=== PATIENT | female | born 1975 | race Caucasian/White ===

== ENCOUNTER 2019-05-15 16:54 | Inpatient (IN) | payer OTHER ==
[~2019-05-15] VITALS: Ht 149.9 cm; Wt 99.8 kg
--- NOTE | 2019-05-15 17:21 | NUR ---
PT ARRIVED VIA AMBULANCE FROM [facility] DUE TO CP OFF/ON X 2 DAYS. CP STARTED AGAIN 01/24 AT 1500 AND WAS GIVEN NITRO X 2 WITH RELIEF. PT STATES SHE HAS HAD INCREASE STRESS IN HER FAMILY LIFE AND WHEN SHE THINKS ABOUT THAT SHE HAS CP AND ANXIETY. SHE IS A/O X4 WITH RESP EVEN/UNLABORED. DENIES PAIN AT THIS TIME. WILL CONT TO MONITOR.
[2019-05-15 17:41] LABS: BASOPHIL % 0.5 % (0-2); PLATELET COUNT 386 x10^3mcL (130-400); RED CELL DISTRIBUTION WIDTH 13.9 % (11.5-14.5)
[2019-05-15 17:53] LABS: CALCIUM 9.7 mg/dL (8.5-10.1); CARBON DIOXIDE 33.6 mmol/L (21-32); CHLORIDE SERUM 99 mmol/L (98-107); CREATININE SERUM 0.8 mg/dL (0.6-1.0); GFR1 > 60 mL/min; GLUCOSE SERUM 102 mg/dL (74-106); POTASSIUM SERUM 3.9 mmol/L (3.5-5.1); SODIUM SERUM 140 mmol/L (136-145)
[2019-05-15 18:00] LABS: ALBUMIN 3.8 g/dL (3.4-5.0); ALKALINE PHOSPHATASE 67 U/L (46-116); ALT/SGPT 35 U/L (14-59); AST/SGOT 16 U/L (15-37); BILIRUBIN TOTAL 0.32 mg/dL (0.20-1.00)
--- NOTE | 2019-05-15 19:18 | NUR ---
REPORT GIVEN TO GYPSY WALDROP, TO ASSUME CARE OF PT .
[2019-05-15] MEDS ORDERED: HYDROCHLOROTHIA25 MG PO (19:22)
[2019-05-15] MEDS ORDERED: APAP500 MG PO (19:22)
[2019-05-15] MEDS ORDERED: POLYCAL PO (19:23)
[2019-05-15] MEDS ORDERED: PROPRANOLOL HCL20 MG PO (19:23)
--- NOTE | 2019-05-15 19:27 | NUR ---
PT CURRENTLY RESTING IN A POSITION OF COMFORT, AOX4, RESP EVEN AND UNLABORED, NO ACUTE DISTRESS NOTED.
--- NOTE | 2019-05-15 19:47 | NUR ---
PT TRANSFERRED TO [facility] BY [facility] BY LYNETTE BETANCUR AND SABA EMT. PT ON FULL CM FOR TRANSPORT, PT AOX4, RESP EVEN AND UNLABORED, NO ACUTE DISTRESS NOTED. PT AMBULATED FROM [facility] TO BED WITHOUT INCIDENT. PT ACCEPTED BY SHELLY BETANCUR TO ASSUME PT CARE. CIW GUARDS AT SIDE.
--- NOTE | 2019-05-15 19:50 | NUR ---
[facility] [employer], CAME IN DUE TO CHEST PAIN X2 DAYS. AAOX4. DENIES HEADACHE/DIZZINESS. ABLE TO FOLLOW COMMANDS. NO SOB NOTED, LUNG SOUNDS CTA. DENIES CHEST PAIN/PRESSURE, SR ON THE MONITOR. DENIES ABDOMINAL DISCOMFORT. BOWEL SOUNDS ACTIVE. VOIDS. IV SITE ON THE LEFT HAND PATENT AND INTACT. CALM AND COOPERATIVE TO CARE. ENDORSED TO PRIMARY NURSE SHELLY FOR CONTINUITY OF CARE
[2019-05-15 20:15] VITALS: BP 158/84
[2019-05-15 20:18] VITALS: Ht 149.9 cm; Wt 99.8 kg
[2019-05-15 20:54] LABS: MAGNESIUM 1.8 mg/dL (1.8-2.4)
[2019-05-15 21:12] LABS: CHOLESTEROL/HDL RATIO 3.3
[2019-05-16 05:20] LABS: UA SPECIFIC GRAVITY 1.015 (1.005-1.035); microscopic required? YES; urine erythrocyte TRACE (NEGATIVE)
[2019-05-16 05:25] LABS: AMPHETAMINE QUAL UR NONE DETECTED (See below)
[2019-05-16 05:49] VITALS: BP 140/79
[2019-05-16 06:09] LABS: BASOPHIL % 0.5 % (0-2); PLATELET COUNT 359 x10^3mcL (130-400); RED CELL DISTRIBUTION WIDTH 13.7 % (11.5-14.5)
[2019-05-16 06:20] LABS: CALCIUM 9.3 mg/dL (8.5-10.1); CHLORIDE SERUM 103 mmol/L (98-107); CREATININE SERUM 0.9 mg/dL (0.6-1.0); GFR1 > 60 mL/min; GLUCOSE SERUM 100 mg/dL (74-106); POTASSIUM SERUM 3.9 mmol/L (3.5-5.1); SODIUM SERUM 145 mmol/L (136-145)
--- NOTE | 2019-05-16 06:59 | NUR ---
PT RESTED IN LONG INTERVALS THROUGHOUT SHIFT. NO SOB NOTED ON ROOM AIR. NO C/O CHEST PAIN. NO DISTRESS NOTED. SAFETY MEASURES MAINTAINED. CALL LIGHT WITHIN REACH. GUARDS X2 AT BEDSIDE. WILL ENDORSE CONTINUITY OF CARE TO DAY SHIFT RN.
--- NOTE | 2019-05-16 07:25 | NUR ---
RECEIVED PATIENT ASLEEP AROUSABLE. NO DISTRESS NOTED. DENIES CHEST PAIN. TELE #3 SR W/ HR 63 NOTED. IV TO LH INTACT AND SL, NO ERYTHEMA NOTED. ANKLE CUFFED TO BED NOTED. 2 GUARDS AT BEDSIDE. CALL LIGHT WITHIN REACH.
[2019-05-16 08:06] VITALS: BP 131/85
--- NOTE | 2019-05-16 08:37 | NUR ---
ECHOCARDIOGRAM PENDING-HAVING BREAKFAST
--- NOTE | 2019-05-16 08:48 | NUR ---
PATIENT SAT UP IN BED EATING AT THIS TIME. NO C/O PAIN. ALL PO MEDS ADMINISTERED, PATIENT TOOK ALL NO PROBLEMS. NEEDS MET. CALL LIGHT WITHIN REACH.
[2019-05-16 12:32] VITALS: BP 115/75
--- NOTE | 2019-05-16 13:27 | NUR ---
PATIENT RESTING IN BED NO DISTRESS NOTED AND CALM. TYLENOL 650MG PO ADMINISTERED FOR 7/10 REYES, LEVAQUIN 500MG IVPB INFUSING TO LH IV PATENT. NO REACTION NOTED. CONT TO MONITOR. 2 GUARDS REMAIN AT BEDSIDE.
--- NOTE | 2019-05-16 15:58 | NUR ---
DR. PRABHAKAR SEEN PATIENT AND INTERVIEW PATIENT, DISCUSS PLAN FOR STRESS TEST ON SATURDAY AT 09:30 AND KEEP PATIENT NPO AFTER MN ON SATURDAY. PATIENT RESTING IN BED, NO C/O CHEST PAIN. TELE SB 56 NOTED. 2 GUARDS REMAIN IN THE ROOM.
[2019-05-16 16:07] VITALS: BP 116/70
--- NOTE | 2019-05-16 18:19 | NUR ---
PATIENT RESTING IN BED NO COMPLAIN, NEEDS MET. CALL LIGHT WITHIN REACH. 2 GUARDS REMAIN IN THE ROOM.
--- NOTE | 2019-05-16 19:15 | NUR ---
RECIEVED PT RESTING IN BED WITH CORRECTIONS OFFICERS AT BEDSIDE, PT IS IN NO ACUTE DISTRESS AT THIS TIME, ASSESMENT PERFORMED, PT IS A/OX4 NO COMPLAINTS OF REYES OR DIZZINESS, PT DENIES CHEST PAIN AT THIS TIME, PT DENIES SOB OR PAIN, ALL PT NEEDS ATTENDED TO SAFETY PRECAUTIONS IN PLACE, WILL CONTINUE TO MONITOR
[2019-05-16 20:28] VITALS: BP 117/76
--- NOTE | 2019-05-16 23:55 | NUR ---
PT RESTING IN BED WITH CORRECTIONS OFFICERS AT BEDSIDE, PT DENIES PAIN OR SOB AT THIS TIME, ALL NEEDS ATTENDED TO, SAFETY PRECAUTIONS IN PLACE, WILL CONTINUE TO MONITOR
--- NOTE | 2019-05-17 05:12 | NUR ---
PT REMAINED IN BED AND RESTED THROUGH SHIFT WITH NO ACUTE DISTRESS NOTED, PT DENIED PAIN OR SOB THROUGH NIGHT, PT IS CALM AND COOPERATIVE WITH CARE, CORRECTIONS OFFICERS REMAINED AT BEDSIDE THROUGH NIGHT, ALL NEEDS ATTENDED TO, WILL CONTINUE TO MONITOR AND ENDORSE CARE
[2019-05-17 05:59] VITALS: BP 104/71
--- NOTE | 2019-05-17 07:31 | NUR ---
RECEIVED PT IN NO ACUTE DISTRESS. SLEEPING BUT AROUSABLE. BREATHING EVEN AND UNLABORED ON RA. NO PAIN NOTED. IV TO L HAND, NO REDNESS OR SWELLING. BED IN LOW POSITION, CALL LIGHT WITHIN REACH. 2 CIM STAFF AT BEDSIDE. WILL CONTINUE TO MONITOR.
[2019-05-17 08:31] VITALS: BP 112/76
--- NOTE | 2019-05-17 13:24 | NUR ---
PT SITTING UP IN BED. NO ACUTE DISTRESS. AAOX4. RESP EVEN AND UNLABORED ON RA. DENIES CP OR PRESSURE. GIVEN HAND TOWELS REQUESTED. IV TO L HAND, NO REDNESS OR SWELLING NOTED. 2 CIM STAFF AT BEDSIDE. CALL LIGHT WITHIN REACH. WILL CONTINUE TO MONITOR.
[2019-05-17 16:18] VITALS: BP 121/67
--- NOTE | 2019-05-17 18:20 | NUR ---
PT SITTING UP IN BED. NO ACUTE DISTRESS. AAOX4. BREATHING EVEN AND UNLABORED ON RA. DENIES CP OR PRESSURE. IV TO L HAND, NO REDNESS OR SWELLING. BED IN LOW POSITION, CALL LIGHT WITHIN REACH. CIM STAFF AT BEDSIDE. WILL ENDORSE TO ONCOMING SHIFT.
[2019-05-17 19:52] VITALS: BP 114/65
--- NOTE | 2019-05-17 21:19 | NUR ---
SCHEDULED MEDS ADMINISTERED, PATIENT INFORMED ABOUT EACH MEDS ACTIONS AND PURPOSE PRIOR. PATIENT OOK PILLS WELL. COMPLAINT OF HEADACHE, MEDICATED PRN, WILL CHECK AND RE-ASSESS EFFECTIVENESS.
--- NOTE | 2019-05-17 22:19 | NUR ---
CHECKED EFFECTIVENESS OF TYLENOL PATIENT STATED HEADACHE IS BETTER AT DESIRED GOAL 2/10. COMFORTABLE.
--- NOTE | 2019-05-18 | NUR ---
ROUNDS MADE PATIENT SLEEPING QUIETLY AND COMFORTABLY THIS TIME, EASILY AWAKEN WHEN NAME CALLED, RE-INSTRUICTED AND RE-REMINDED ABOUT NPO ORDER FOR STRESS TEST THIS AM AT 0945. PATIENT VERBALIZED UNDERSTANDING.DENIED CHEST PAINS,SR ON THE MONITOR. 2 CIW OFFICER AT BEDSIDE. WILL CONTINUE TO MONITOR.
--- NOTE | 2019-05-18 05:54 | NUR ---
PATIENT HAD A RESTFUL, COMFORTABLE QUIET NIGHT STATED, NO COMPLAINT OF CHEST PAIN DURING THE SHIFT, SR ON THE MONITOR. PATIENT RE-REMINDED ABOUT NPO ORDER THIS AM. SAFETY PRECAUTIONS OBSERVED AND MAINTAINED. 2CIW OFFICER AT BS DURING THE SHIFT. WILL ENDORSE CONTINUITY OF CARE TO INCOMING NURSE.
[2019-05-18 06:10] VITALS: BP 118/61
--- NOTE | 2019-05-18 07:14 | NUR ---
RECEIVED REPORT FROM RACHEL BETANCUR. PATIENT RESTING COMFORTABLY IN BED WITH CIM OFFICER AT BEDSIDE AND SHACKLES NOTED TO BLE. PT INFORMED THAT A URINE SAMPLE IS NEEDED. PT AMBULATED TO RESTROOM W/O ASSISTANCE TO PROVIDE. SALINE LOCK TO LT HAND IS PATENT AND INTACT. NO REDNESS OR PAIN. TELE # [address] PT DENIES CHEST PAIN. PT ON ROOM AIR. NO C/O SOB AND NO DISTRESS NOTED. ALL QUESTIOSN AND CONCERNS ADDRESSED.
--- NOTE | 2019-05-18 07:27 | NUR ---
PER NUCLEAR MED, THEY NEEDED A UA HCG BEFORE PROCEEDING TO STRESS TEST, UA COLLECTED AND SEND TO LAB.
[2019-05-18 08:20] VITALS: BP 98/62
--- NOTE | 2019-05-18 08:34 | NUR ---
IN TO SEE PATIENT AND DISCUSS THAT MEDS ARE BEING HELD FOR STRESS TEST TODAY. TEST NEGATIVE NM TECH NOTIFIED.
--- NOTE | 2019-05-18 09:31 | NUR ---
PATIENT BEING TAKEN DOWN FOR STRESS TEST VIA WHEELCHAIR. AWAITING PATIENT RETURN TO FLOOR.
--- NOTE | 2019-05-18 11:51 | NUR ---
PT RETURNED FROM STRESS TEST. PT RESTING COMFORTABLY IN BED WITH CIW OFFICERS AT BEDSIDE AND ALL NEEDS MET.
[2019-05-18 12:00] VITALS: BP 131/89
--- NOTE | 2019-05-18 12:06 | NUR ---
PATIENT RETURNED FROM STRESS TEST. PT REPORTS MILD HEADACHE BUT DECLINES MEDICATION AT THIS TIME. VITALS TAKEN AND STABLE (SEE DOCUMENTATION). PT IV HAS COME OUT. INFORMED THAT A NEW ONE WILL HAVE TO BE PLACED. PT VERBALIZED UNDERSTANDING.
--- NOTE | 2019-05-18 13:57 | NUR ---
IN TO SEE PATIENT AND ASSESS NEEDS AFTER LUNCH. PATIENT RESTING COMFORTABLY IN BED WITH CIW OFFICERS AT BEDSIDE. PT REPORTS HER HEADACHE IS GONE. ALL NEEDS MET.
--- NOTE | 2019-05-18 15:25 | NUR ---
SPOKE WITH DR ZAMUDIO TO NOTIFY OF [facility] RESULTS. DR ZAMUDIO ORDERED TO NOTIFY DR PRABHAKAR ALSO AND HE WILL BEGIN WORKING ON PATIENT DISCHARGE.
[2019-05-18 15:55] VITALS: BP 131/89
[2019-05-18 15:58] VITALS: BP 131/89
--- NOTE | 2019-05-18 17:18 | NUR ---
PATIENT STABLE FOR DISCHARGE PER MD. DISCHARGE INSTRUCTIONS AND SUMMARY DISCUSSED WITH PATIENT. PT VERBALIZED UNDERSTANDING AND ALL QUESTIONS AND CONCERNS WERE ADDRESSED. CIW OFFICERS WILL NOTIFY WHEN TRANSPORTATION ARRIVES.
--- NOTE | 2019-05-18 17:23 | NUR ---
NOTIFIED DR PRABHAKAR OF [facility] RESULTS. DR PRABHAKAR AGREED THAT PATIENT IS OK TO GO BACK TO [facility].
[2019-05-18 18:06] VITALS: BP 11/70
--- NOTE | 2019-05-18 18:53 | NUR ---
PATIENT RESTING CMOFORTABLY IN BED WITH CIW OFFICERS AT BEDSIDE. PT STILL AWAITING TRANSPORTATION. ALL NEEDS MET.
--- NOTE | 2019-05-18 19:24 | NUR ---
REPORT GIVEN TO SANIYA BETANCUR. PATIENT RESTING IN BED WITH CIW OFFICERS AT BEDSIDE. STILL AWAITING TRANSPORTATION.
== END 2019-05-18 20:05 | disposition other institution (70) | DRG 313 ==
LOC: ED 16:54 → DU 18:25
PROVIDERS: Emergency Medicine; ADMIT Internal Medicine
DX: R07.89 Other chest pain (principal); Z68.42 Body mass index [BMI] 45.0-49.9, adult; I10 Essential (primary) hypertension; E66.9 Obesity, unspecified; I25.10 Atherosclerotic heart disease of native coronary artery without angina pectoris; F41.9 Anxiety disorder, unspecified; K74.60 Unspecified cirrhosis of liver; Z60.2 Problems related to living alone; E78.5 Hyperlipidemia, unspecified; J45.909 Unspecified asthma, uncomplicated; Z79.82 Long term (current) use of aspirin; Z87.11 Personal history of peptic ulcer disease; Z79.899 Other long term (current) drug therapy
CPT/HCPCS: 90658; A9500; G0378; J1956; J2785; J7050; Q0092